=== PATIENT | female | born 1970 | race Caucasian/White ===

== ENCOUNTER → 2016-09-15 | Outpatient (CLI) | payer OTHER ==
[2016-09-15 07:30] LABS: Basophils % (A) 1 %; CH 30.9; CHCM 33.9; Eosinophils # (A) 0.2 k/uL (0-0.7); Eosinophils % (A) 4 %; HCT 41.5 % (34.0-46.0); HDW 2.71; HGB 13.7 gm/dL (11.4-16.0); Luc # (Auto) 0.12; Luc % (Auto) 2; Lymphocytes # (A) 1.9 k/uL (1.0-4.8); Lymphocytes % (A) 32 %; MCH 30.2 pg (25.0-35.0); MCHC 32.9 g/dL (31.0-37.0); MCV 91.7 fL (80.0-100.0); Mean Platelet Volume 6.6; Monocytes # (A) 0.3 k/uL (0-1.0); Monocytes % (A) 6 %; Neutrophils # (A) 3.3 k/uL (1.3-7.7); Neutrophils % (A) 56 %; RBC 4.52 m/uL (3.80-5.40); WBC 5.9 k/uL (3.8-10.6); WBC (Perox) 6.37
[2016-09-15 08:08] LABS: Hemoglobin A1C 5.4 % (4.2-6.1)
[2016-09-15 13:38] LABS: ALT 36 U/L (9-52); AST 21 U/L (14-36); Alkaline Phosphatase 84 U/L (38-126); Anion Gap 10 mmol/L; Blood Urea Nitrogen 15 mg/dL (7-17); Calcium 9.3 mg/dL (8.4-10.2); Carbon Dioxide 26 mmol/L (22-30); Chloride 109 mmol/L (98-107); Cholesterol 165 mg/dL (<200); Glucose 102 mg/dL (74-99); HDL Cholesterol 58 mg/dL (40-60); Non-African American GFR(MDRD) 59 (>60 ml/min/1.73 sqM); Potassium 4.5 mmol/L (3.5-5.1); Sodium 145 mmol/L (137-145); Total Bilirubin 0.4 mg/dL (0.2-1.3); Total Protein 6.6 g/dL (6.3-8.2); Triglycerides 72 mg/dL (<150)
[2016-09-15 14:25] LABS: Vitamin B12 >1000 pg/mL (239-931)
--- NOTE | 2016-09-16 13:08 | MM ---
Reason for exam: screening (asymptomatic). Last mammogram was performed 1 year and 3 months ago. History: Family history of breast cancer in grandmother. Benign left breast aspiration of the left breast, April 01, 2012. Taking hormonal contraceptives for 2 months beginning at age 42. Physical Findings: A clinical breast exam by your physician is recommended on an annual basis and results should be correlated with mammographic findings. MG Screening Mammo w CAD Bilateral CC and MLO view(s) were taken. Prior study comparison: June 26, 2015, bilateral MG screening mammo w CAD. March 14, 2014, bilateral MG screening mammo w CAD. There are scattered fibroglandular densities. Previous mammotome biopsy in the left breast. No significant changes when compared with prior studies. ASSESSMENT: Benign, BI-RAD 2 RECOMMENDATION: Routine screening mammogram of both breasts in 1 year.
== END | disposition home or self-care (01) ==
LOC: RADMAMWWP 06:39
PROVIDERS: ATTEND Family Medicine
DX: Z12.31 Encounter for screening mammogram for malignant neoplasm of breast (principal); M51.27 Other intervertebral disc displacement, lumbosacral region; E88.81 Metabolic syndrome and other insulin resistance; E03.9 Hypothyroidism, unspecified
CPT/HCPCS: 84439; 80061; 80053; 82607; 83036; 84443; 85025; 82306; G0202

== ENCOUNTER → 2016-10-07 | Outpatient (CLI) | payer OTHER ==
--- NOTE | 2016-10-07 16:32 | WWHP ---
DATE OF DICTATION: 10/06/2016 CHIEF COMPLAINT: The patient is here for her routine gynecologic exam. HISTORY OF PRESENT ILLNESS: This is a 46-year-old G2, P2 with an LMP of 03/2016. She is status post tubal ligation. She states it has been about 4 years since her last pelvic exam. She has not had a period since March 2016. She does have pelvic discomfort which seems to occur about every 3 weeks and lasts 3 to 4 days. She states it feels like a period is about to start, but she has not had any bleeding since March. She describes the pain as a deep burning dull pain which is greater on the left side. She denies any pain at this time. The last time she had this type of pain was 10/02 to 10/04 this month. She had similar pain in 2012 and was seen by Dr. Seo at [facility]. The patient underwent diagnostic laparoscopy and the findings were endometriosis in the area of the left ovary as well as a left ovarian cyst which was felt to be an endometrioma. Cystectomy was performed and the pathology report revealed a hemorrhagic corpus luteum cyst. The patient was placed on daily progesterone for 3 months. She states her periods were then regular and the pain was improved. She denies hot flashes. She states her thyroid blood tests have been done just recently and were normal. She denies any leakage from the breasts. PAST MEDICAL HISTORY: 1. Hypothyroidism. 2. Depression. 3. She had possible FL in 12/2015. She states she does take a baby aspirin because of this but has never been referred to a exploration engineer. Dr. Chapman is her primary care physician. MEDICATIONS: 1. Bupropion HCL SR 200 mg b.i.d. 2. Levothyroxine 25 mcg daily. 3. Aspirin 81 mg daily. ALLERGIES: NO KNOWN DRUG ALLERGIES. PAST SURGICAL HISTORY: 1. Tubal ligation in 2006. 2. Laparoscopy with ovarian cystectomy in 02/2013. 3. Tonsillectomy in 1986. PAST OB HISTORY: Vaginal deliveries x2. 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 She was told she had endometriosis by her 2012 laparoscopy. Please see HPI. SOCIAL HISTORY: She quit smoking in 04/2016. She denies alcohol and drug use. She is single but has been with her boyfriend since 2006 but does not live with him. 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 FAMILY HISTORY: Mother had lymphoma, lung cancer and esophageal cancer. Paternal grandmother had breast cancer. Both parents had an FL and diabetes. A brother had an FL. REVIEW OF SYSTEMS: She has gained about 17 pounds over the last year. She believes some of this is related to quitting smoking last year. She denies respiratory, cardiac or GI problems. PHYSICAL EXAM: Blood pressure 133/93. Height 5 feet 7 inches. Weight 233 pounds. Temperature 98.4. Pulse 64. This is a well-developed, heavyset white female who is alert and oriented x3, in no acute distress. HEENT is within normal limits. NECK: Supple without mass or thyromegaly. CHEST AND LUNGS: Clear to auscultation. HEART: Regular rate and rhythm. Breasts are without mass or discharge. Axillary exam is negative for adenopathy. BACK: Negative for CVA tenderness. ABDOMEN: Mildly obese, soft, nontender, without palpable masses. PELVIC EXAM: Normal external genitalia. Cervix and vagina appear normal. There is no significant atrophy and there is no unusual discharge. There is no cervical motion tenderness. There is no evidence of prolapse. The uterus is midposition, nongravid size and nontender. There are no palpable adnexal masses or tenderness. Rectal exam was refused by the patient. EXTREMITIES: Nontender. IMPRESSION: 1. A 46-year-old female with a six-month history of amenorrhea. 2. Cyclic pelvic pains. 3. History of endometriosis. 4. Differential diagnosis for pelvic pain will include endometriosis, outlet obstruction with resulting amenorrhea, ovarian cyst as well as non-gynecologic causes for pain. 5. Amenorrhea may also be caused by menopausal change. PLAN: 1. Pap smear was performed. 2. Self breast examination was discussed. 3. Lab blood work will include FSH. We will try to determine if she is menopausal. 4. Pelvic ultrasound will be scheduled. 5. If she is not menopausal, consider a trial of cyclic progestin treatment. 6. She was told about her elevated blood pressure. I have recommended that she have her blood pressure checked on a regular basis and follow up with Dr. Chapman regarding elevated blood pressure. 7. She will also return in one year and p.r.n.
== END | disposition home or self-care (01) ==
LOC: WWCWWP 07:33
PROVIDERS: ATTEND Obstetrics & Gynecology
DX: N91.1 Secondary amenorrhea (principal)
CPT/HCPCS: 83001

== ENCOUNTER → 2016-10-21 | Outpatient (CLI) | payer OTHER ==
--- NOTE | 2016-10-21 08:47 | US ---
EXAMINATION TYPE: US pelvis complete transvag DATE OF EXAM: 10/21/2016 7:22 AM COMPARISON: NONE CLINICAL HISTORY: R10.2 Pelvic Pain. Irregular menses, patient states having intermittent general/lef t sided pain TECHNIQUE: Transvaginal (TV) and Transabdominal (TA) Date of LMP: 09/15/2016, EXAM MEASUREMENTS: Uterus: 9.4 x 6.9 x 5.0 cm Endometrial Stripe: 0.9 cm Right Ovary: 3.3 x 2.1 x 1.3 cm 1. Uterus: Anteverted Two prominent lesions seen. 1: left hyperechoic lesion = 1.1 x 1.1 x 1.2 cm 2: Right hypoechoic= 1.1 x 0.9 x 1.0 cm 2. Endometrium: wnl 3. Right Ovary: cystic lesion = 1.7 x 1.7 x 1.3 cm 4. Left Ovary: Obscured by overlying bowel gas Spectral, color and waveform doppler imaging shows good arterial and venous flow within the ovaries ; there is no evidence for ovarian torsion. 5. Bilateral Adnexa: wnl 6. Posterior cul-de-sac: no free fluid IMPRESSION: 1. There are 2 approximately 1.2 and 1.1 cm lesions within the myometrium which are nonspecific but felt to be more typical of uterine fibroid and other etiologies such as endometrioma. Correlate clini salty. 2. Simple 1.7 cm right ovarian cyst
== END | disposition home or self-care (01) ==
LOC: RADUSWWP 06:42
PROVIDERS: ATTEND Obstetrics & Gynecology
DX: N83.201 Unspecified ovarian cyst, right side (principal); N85.9 Noninflammatory disorder of uterus, unspecified
CPT/HCPCS: 76830; 76856; 93976

== ENCOUNTER → 2017-11-02 | Outpatient (CLI) | payer BC ==
[2017-11-02 09:24] LABS: Basophils % (A) 1 %; Eosinophils # (A) 0.2 k/uL (0-0.7); Eosinophils % (A) 3 %; HCT 45.7 % (34.0-46.0); HGB 15.2 gm/dL (11.4-16.0); Lymphocytes % (A) 25 %; MCH 30.6 pg (25.0-35.0); MCHC 33.4 g/dL (31.0-37.0); MCV 91.7 fL (80.0-100.0); Monocytes # (A) 0.4 k/uL (0-1.0); Monocytes % (A) 5 %; Neutrophils # (A) 5.3 k/uL (1.3-7.7); Neutrophils % (A) 65 %; Platelet Count 319 k/uL (150-450); RBC 4.98 m/uL (3.80-5.40); RDW 13.2 % (11.5-15.5); WBC 8.3 k/uL (3.8-10.6)
[2017-11-02 09:53] LABS: Albumin 4.2 g/dL (3.5-5.0); Calcium 9.3 mg/dL (8.4-10.2); Potassium 5.2 mmol/L (3.5-5.1); Total Bilirubin 0.4 mg/dL (0.2-1.3); Total Protein 6.6 g/dL (6.3-8.2)
[2017-11-02 09:59] LABS: T4, Free (Free Thyroxine) 1.07 ng/dL (0.78-2.19)
[2017-11-02 17:14] LABS: Progesterone <0.2 ng/mL
== END | disposition home or self-care (01) ==
LOC: LABWHC1 08:31
PROVIDERS: ATTEND Family Medicine
DX: E03.9 Hypothyroidism, unspecified (principal); N92.0 Excessive and frequent menstruation with regular cycle
CPT/HCPCS: 36415; 80053; 83001; 83002; 84144; 84439; 84443; 85025

== ENCOUNTER → 2018-07-19 | Outpatient (CLI) | payer BC ==
[2018-07-19 07:54] LABS: Basophils % (A) 1 %; Eosinophils # (A) 0.2 k/uL (0-0.7); Eosinophils % (A) 3 %; HGB 14.7 gm/dL (11.4-16.0); Lymphocytes # (A) 2.2 k/uL (1.0-4.8); Lymphocytes % (A) 33 %; MCH 29.9 pg (25.0-35.0); MCHC 32.6 g/dL (31.0-37.0); MCV 91.7 fL (80.0-100.0); Mean Platelet Volume 7.2; Monocytes # (A) 0.4 k/uL (0-1.0); Monocytes % (A) 6 %; Neutrophils # (A) 3.6 k/uL (1.3-7.7); Neutrophils % (A) 55 %; Platelet Count 296 k/uL (150-450); RBC 4.91 m/uL (3.80-5.40); RDW 13.1 % (11.5-15.5); WBC 6.5 k/uL (3.8-10.6)
[2018-07-19 08:07] LABS: Albumin 4.5 g/dL (3.5-5.0); Calcium 9.9 mg/dL (8.4-10.2); Potassium 4.6 mmol/L (3.5-5.1); Total Bilirubin 0.6 mg/dL (0.2-1.3); Total Protein 6.9 g/dL (6.3-8.2)
[2018-07-19 08:21] LABS: T4, Free (Free Thyroxine) 1.46 ng/dL (0.78-2.19)
[2018-07-19 13:25] LABS: Progesterone 0.4 ng/mL
[2018-07-19 16:49] LABS: Hemoglobin A1C 5.8 % (4.0-6.0)
--- NOTE | 2018-07-20 12:04 | MM ---
Reason for exam: screening (asymptomatic). Last mammogram was performed 1 year and 10 months ago. History: Family history of breast cancer in grandmother. Benign left breast aspiration of the left breast, April 01, 2012. Taking hormonal contraceptives for 2 months beginning at age 42. Physical Findings: A clinical breast exam by your physician is recommended on an annual basis and results should be correlated with mammographic findings. MG Screening Mammo w CAD Bilateral CC and MLO view(s) were taken. Prior study comparison: September 15, 2016, bilateral MG screening mammo w CAD. June 26, 2015, bilateral MG screening mammo w CAD. There are scattered fibroglandular densities. Previous mammotome biopsy in the left breast. No significant changes when compared with prior studies. ASSESSMENT: Benign, BI-RAD 2 RECOMMENDATION: Routine screening mammogram of both breasts in 1 year.
== END ==
LOC: RADMAMWWP 06:54
PROVIDERS: ATTEND Family Medicine
DX: Z12.31 Encounter for screening mammogram for malignant neoplasm of breast (principal); Z80.3 Family history of malignant neoplasm of breast; N92.0 Excessive and frequent menstruation with regular cycle; E03.9 Hypothyroidism, unspecified; E88.81 Metabolic syndrome and other insulin resistance; I25.6 Silent myocardial ischemia
CPT/HCPCS: 77067; 80053; 80061; 82306; 82607; 83001; 83002; 83036; 84144; 84146; 84439; 84443; 85025; 86304

== ENCOUNTER → 2019-08-24 | Outpatient (CLI) | payer BC ==
--- NOTE | 2019-08-24 10:25 | MM ---
Reason for exam: clinical finding. Last mammogram was performed 1 year and 1 month ago. History: Family history of breast cancer in grandmother at age 66. Benign left breast aspiration of the left breast, April 01, 2012. Took hormonal contraceptives for 2 months beginning at age 42. Physical Findings: Nurse did not find any significant physical abnormalities on exam. MG Diagnostic Mammo w CAD SONDRA Bilateral CC and MLO view(s) were taken. Prior study comparison: July 19, 2018, bilateral MG screening mammo w CAD. September 15, 2016, bilateral MG screening mammo w CAD. There are scattered fibroglandular densities. Left biopsy marker. These results were verbally communicated with the patient and result sheet given to the patient on 08/24/19. ASSESSMENT: Negative, BI-RAD 1 RECOMMENDATION: Routine screening mammogram of both breasts in 1 year.
--- NOTE | 2019-08-24 10:27 | USB ---
Reason for exam: clinical finding. History: Family history of breast cancer in grandmother at age 66. Benign left breast aspiration of the left breast, April 01, 2012. Took hormonal contraceptives for 2 months beginning at age 42. US Breast LT Left complete breast ultrasound includes all four quadrants, the retroareolar region and axilla. Finding demonstrates no cystic or solid lesion seen. No suspicious sonographic finding. These results were verbally communicated with the patient and result sheet given to the patient on 08/24/19. ASSESSMENT: Benign, BI-RAD 2 RECOMMENDATION: Routine screening mammogram of both breasts in 1 year.
== END | disposition home or self-care (01) ==
LOC: RADMAMWWP 07:57
PROVIDERS: ATTEND Family Medicine
DX: N63.20 Unspecified lump in the left breast, unspecified quadrant (principal); N63.10 Unspecified lump in the right breast, unspecified quadrant
CPT/HCPCS: 77066

== ENCOUNTER → 2021-02-24 | Outpatient (CLI) | payer BC ==
[2021-02-24 07:51] LABS: Basophils % (A) 1 %; Eosinophils # (A) 0.2 k/uL (0-0.7); Eosinophils % (A) 3 %; HCT 43.5 % (34.0-46.0); HGB 14.7 gm/dL (11.4-16.0); Lymphocytes # (A) 2.5 k/uL (1.0-4.8); Lymphocytes % (A) 33 %; MCH 31.6 pg (25.0-35.0); MCHC 33.9 g/dL (31.0-37.0); MCV 93.4 fL (80.0-100.0); Mean Platelet Volume 7.7; Monocytes # (A) 0.5 k/uL (0-1.0); Monocytes % (A) 6 %; Neutrophils # (A) 4.1 k/uL (1.3-7.7); Neutrophils % (A) 55 %; Platelet Count 268 k/uL (150-450); RBC 4.65 m/uL (3.80-5.40); RDW 12.7 % (11.5-15.5); WBC 7.4 k/uL (3.8-10.6)
[2021-02-24 08:06] LABS: ALT 26 U/L (4-34); AST 26 U/L (14-36); African American GFR (CKD) 86 (>60 ml/min/1.73 sqM); Albumin 4.2 g/dL (3.5-5.0); Albumin/Globulin Ratio 1.7; Alkaline Phosphatase 84 U/L (38-126); Anion Gap 8 mmol/L; Blood Urea Nitrogen 15 mg/dL (7-17); Calcium 9.9 mg/dL (8.4-10.2); Carbon Dioxide 26 mmol/L (22-30); Chloride 106 mmol/L (98-107); Globulin 2.5 g/dL; Glucose 103 mg/dL (74-99); Non-African American GFR(CKD) 75 (>60 ml/min/1.73 sqM); Potassium 4.5 mmol/L (3.5-5.1); Sodium 140 mmol/L (137-145); Total Bilirubin 0.5 mg/dL (0.2-1.3); Total Protein 6.7 g/dL (6.3-8.2)
[2021-02-24 08:22] LABS: T4, Free (Free Thyroxine) 1.13 ng/dL (0.78-2.19)
[2021-02-24 08:58] LABS: Appearance,Urine Cloudy (Clear); Bacteria,Urine Many /hpf; Bilirubin,Urine Negative (Negative); Blood,Urine Small (Negative); Color,Urine Yellow; Glucose,Urine (UA) Negative (Negative); Hyaline Casts,Urine 1 /lpf (0-2); Ketones,Urine Negative (Negative); Leukocyte Esterase,Urine Moderate (Negative); Mucus,Urine Rare /hpf; Nitrite,Urine Negative (Negative); PH, Urine 5.5 (5.0-8.0); Protein,Urine Negative (Negative); RBC,Urine 4 /hpf (0-5); Specific Gravity,Urine 1.018 (1.001-1.035); Squamous Epithelial Cell,Urine 7 /hpf (0-4); Urobilinogen,Urine <2.0 mg/dL (<2.0); WBC,Urine 6 /hpf (0-5)
[2021-02-24 12:12] LABS: Chol/HDL Ratio 3.65; Cholesterol 186 mg/dL (0-200); LDL Cholesterol,Calculated 108.4 mg/dL (0.0-131.0)
[2021-02-24 14:15] LABS: Hemoglobin A1C 5.6 % (4.0-6.0)
--- NOTE | 2021-02-26 08:32 | MM ---
Reason for exam: screening (asymptomatic). Last mammogram was performed 1 year and 6 months ago. History: Family history of breast cancer in grandmother at age 66. Benign left breast aspiration of the left breast, April 01, 2012. Took hormonal contraceptives for 2 months beginning at age 42. Physical Findings: A clinical breast exam by your physician is recommended on an annual basis and results should be correlated with mammographic findings. MG Screening Mammo w CAD Bilateral CC and MLO view(s) were taken. XCCL view(s) were taken of the left breast. Prior study comparison: August 24, 2019, bilateral MG diagnostic mammo w CAD SONDRA. July 19, 2018, bilateral MG screening mammo w CAD. September 15, 2016, bilateral MG screening mammo w CAD. June 26, 2015, bilateral MG screening mammo w CAD. There are scattered fibroglandular densities. Asymmetric breast tissue right breast MLO view 6-7cm from nipple inferior middle position. This finding is changed when compared with previous exams. ASSESSMENT: Incomplete: need additional imaging evaluation, BI-RAD 0 RECOMMENDATION: Special view mammogram of the right breast. If lesion persists on supplemental views, image directed ultrasound is recommended. [facility] will attempt to contact patient to return for supplemental views and ultrasound if indicated.
== END | disposition home or self-care (01) ==
LOC: RADMAMWWP 06:59
PROVIDERS: ATTEND Family Medicine
DX: Z12.31 Encounter for screening mammogram for malignant neoplasm of breast (principal); E03.9 Hypothyroidism, unspecified; E88.81 Metabolic syndrome and other insulin resistance; R31.21 Asymptomatic microscopic hematuria
CPT/HCPCS: 36415; 77067; 80053; 80061; 81001; 82306; 82607; 83036; 84439; 84443; 85025

== ENCOUNTER → 2021-02-27 | Outpatient (CLI) | payer BC ==
--- NOTE | 2021-02-27 11:40 | MM ---
Reason for exam: additional evaluation requested from abnormal screening. Last mammogram was performed less than 1 month ago. History: Family history of breast cancer in grandmother at age 66. Benign left breast aspiration of the left breast, April 01, 2012. Took hormonal contraceptives for 2 months beginning at age 42. Physical Findings: Nurse did not find any significant physical abnormalities on exam. MG 3D Work Up W/Cad RT LM and spot compression MLO view(s) were taken of the right breast. Prior study comparison: February 24, 2021, bilateral MG screening mammo w CAD. August 24, 2019, bilateral MG diagnostic mammo w CAD SONDRA. There are scattered fibroglandular densities. The inferior asymmetric density completely disperses on spot 3D. Density is again noted on lateral but has an appearance of tissue on 3D. 6 month follow up recommended. These results were verbally communicated with the patient and result sheet given to the patient on 02/27/21. ASSESSMENT: Probably benign, BI-RAD 3 RECOMMENDATION: Follow-up diagnostic mammogram of the right breast in 6 months.
== END | disposition home or self-care (01) ==
LOC: RADMAMWWP 06:58
PROVIDERS: ATTEND Family Medicine
DX: N64.89 Other specified disorders of breast (principal); Z80.3 Family history of malignant neoplasm of breast; Z79.3 Long term (current) use of hormonal contraceptives
CPT/HCPCS: 77061; 77065

== ENCOUNTER → 2021-05-30 | Outpatient (CLI) | payer BC ==
--- NOTE | 2021-07-01 13:54 | EM ---
EVENT MONITOR There were several recordings provided. Most of these were sinus recordings. There was one 3-beat run of PAT and also 1 isolated PVCs noted. Whenever patient triggered it, the rhythm was sinus with 1 isolated PVC. FINAL IMPRESSION: Predominant sinus. There were rare PVCs and 1 3-beat run of PAT. No other significant arrhythmia noted. MMODL / IJN: [id number] /
== END | disposition home or self-care (01) ==
LOC: RADECHMAIN 07:51
PROVIDERS: ATTEND Family Medicine
DX: I49.3 Ventricular premature depolarization (principal)
CPT/HCPCS: 93270

== ENCOUNTER → 2021-08-29 | Outpatient (CLI) | payer BC ==
--- NOTE | 2021-09-03 10:11 | MM ---
Reason for exam: follow-up at short interval from prior study. Last mammogram was performed 6 months ago. History: Family history of breast cancer in grandmother at age 66. Benign left breast aspiration of the left breast, April 01, 2012. Took hormonal contraceptives for 2 months beginning at age 42. Physical Findings: A clinical breast exam by your physician is recommended on an annual basis and results should be correlated with mammographic findings. MG 3D Diag Mammo W/Cad RT CC and MLO view(s) were taken of the right breast. Prior study comparison: February 27, 2021, right breast MG 3d work up w/cad RT. February 24, 2021, bilateral MG screening mammo w CAD. There are scattered fibroglandular densities. There is no discrete abnormality. ASSESSMENT: Negative, BI-RAD 1 RECOMMENDATION: Return to routine screening mammogram schedule for both breasts. Back on schedule.
== END | disposition home or self-care (01) ==
LOC: RADMAMWWP 14:02
PROVIDERS: ATTEND Family Medicine
DX: N64.89 Other specified disorders of breast (principal); Z80.3 Family history of malignant neoplasm of breast
CPT/HCPCS: 77061; 77065

== ENCOUNTER → 2021-10-07 | Outpatient (CLI) | payer BC ==
[2021-10-07 08:00] VITALS: BP 162/98; PULSE 70; RESP 17; TEMP 97
--- NOTE | 2021-10-07 08:47 | P.HPOB ---
History of Present Illness H&P Date: 10/07/21 Chief Complaint: The patient is here for her routine gynecologic exam. This is a 51-year-old with an LMP of November 2020. Prior to her LMP, her menstrual period for about 2 times per year and spacing out. She has noticed an increase in hot flashes which are generally short and tolerable. She is otherwise without complaints. Review of Systems She has gained about 5 pounds over the past 5 years. She denies respiratory, cardiac, or GI problems. She is currently on antibiotics for diverticulitis. Past Medical History Past Medical History: No Reported History, Myocardial Infarction ([place]), Thyroid D isorder Additional Past Medical History / Comment(s): [place] in 2015. Hypothyroidism, diverticulosis. 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 History of endometriosis. History of Any Multi-Drug Resistant Organisms: None Reported Past Surgical History: Tonsillectomy, Tubal Ligation Additional Past Surgical History / Comment(s): Laparoscopy with ovarian cystectomy in 2012. Colonoscopy 2020(next after 5yr). Past Anesthesia/Blood Transfusion Reactions: No Reported Reaction Past Psychological History: Depression Smoking Status: Current every day smoker (Half a pack per day.) Past Alcohol Use History: None Reported Past Drug Use History: None Reported Additional History: She is a since 2018. She is currently not seen anybody and has not been sexually active recently. 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 - Past Family History Mother Family Medical History: Cancer, Diabetes Mellitus, Myocardial Infarction ([place]) Additional Family Medical History / Comment(s): Lymphoma, lung cancer, and esophageal cancer. Brother(s) Family Medical History: Myocardial Infarction ([place]) Father Family Medical History: Diabetes Mellitus, Myocardial Infarction ([place]) Additional Family Medical History / Comment(s): A paternal grandmother had breast cancer. Sister(s) Family Medical History: Myocardial Infarction ([place]) Medications and Allergies Home Medications Medication Instructions Recorded Confirmed Type Cyanocobalamin (Vitamin B-12) 1,000 mcg PO DAILY 10/07/21 10/07/21 History [Vitamin B-12] Levothyroxine Sodium 25 mg PO DAILY 10/07/21 10/07/21 History buPROPion HCL [buPROPion HCL SR] 200 mg PO DAILY 10/07/21 10/07/21 History Allergies Allergy/AdvReac Type Severity Reaction Status Date / Time No Known Allergies Allergy Unverified 10/07/21 07:51 Exam Vital Signs Temp Pulse Resp BP Pulse Ox 10/07/21 07:55 97.0 F L 70 17 162/98 98 Intake and Output 10/06/21 10/07/21 10/07/21 22:59 06:59 14:59 Other: Weight 107.955 kg Height 5 feet 7 inches, weight 238 pounds, BMI 37.3. This is a well-developed well-nourished white female who is alert and oriented times 3 in no acute distress. HEENT: Within normal limits. NECK: Supple without mass or thyromegaly. CHEST AND LUNGS: Clear to auscultation. HEART: Regular rate and rhythm. BREASTS: Are without mass or discharge. AXILLARY EXAM: Negative for adenopathy. BACK: Negative for CVA tenderness. ABDOMEN: Soft, nontender, without palpable masses. PELVIC EXAM: Normal external genitalia with mild atrophy. Cervix and vagina appear normal with mild atrophy. There is no unusual discharge. There is no evidence of prolapse. The uterus is midposition, nongravid size and nontender. There are no palpable adnexal masses or tenderness. RECTAL EXAM: Rectovaginal exam is negative for mass or tenderness and is negative for occult blood. EXTREMITIES: Nontender. IMPRESSION: 1. 51-year-old perimenopausal female who is status post tubal ligation, with normal gynecologic exam. 2. Elevated blood pressure. PLAN: 1. Pap smear cotest was performed. 2. Self breast awareness was discussed with the patient. We have also discussed symptoms associated with inflammatory breast cancer. 3. Screening mammogram will be due in February 2022. The order slip was given to the patient for this. 4. We have discussed her elevated blood pressure. I have stressed the importance of having good blood pressure control especially with her history of a previous [place]. I have recommended that she check her own blood pressures at home on a regular basis since she does have a blood pressure cuff. She will fo llow up with her PCP for blood pressure elevations. 5. I have strongly recommended that she quit smoking especially with her history of a previous [place]. We've discussed possible risks with smoking and many reasons to quit smoking. 6.Osteoporosis prevention was discussed. I have stressed the importance of adequate calcium, vitamin D and regular exercise. Recommended amounts of calcium and vitamin D were also discussed. 7. She will keep track of vaginal bleeding and call if problems. She was also instructed to call she has bleeding after 12 months of amenorrhea. 8. She was advised to return in one year for her annual well woman exam.
== END ==
LOC: WWCWWP 07:44
PROVIDERS: ATTEND Obstetrics & Gynecology
DX: Z01.419 Encounter for gynecological examination (general) (routine) without abnormal findings (principal); I25.2 Old myocardial infarction; E03.9 Hypothyroidism, unspecified; F32.A Depression, unspecified; F17.210 Nicotine dependence, cigarettes, uncomplicated; Z79.890 Hormone replacement therapy; R03.0 Elevated blood-pressure reading, without diagnosis of hypertension; Z98.51 Tubal ligation status

== ENCOUNTER → 2022-10-13 | Outpatient (CLI) | payer BC ==
--- NOTE | 2022-10-14 09:21 | MM ---
Reason for Exam: Screening (asymptomatic). Last mammogram was performed 1 year(s) and 8 month(s) ago. Patient History: Menarche at age 12. First Full-Term at age 20. Postmenopausal. Hormonal Contraceptives for 2 months from age 42 until age 43. 04/01/2012, Benign Cyst Aspiration on the left side. Paternal grandmother had breast cancer, age 66. Risk Values: Shahla 5 year model risk: 0.9%. NCI Lifetime model risk: 6.9%. Prior Study Comparison: 09/15/2016 Bilateral Screening Mammogram, [facility]. 07/19/2018 Bilateral Screening Mammogram, [facility]. 08/24/2019 Bilateral Diagnostic Mammogram, [facility]. 02/24/2021 Bilateral Screening Mammogram, [facility]. 02/27/2021 Right Diagnostic Mammogram, [facility]. 08/29/2021 Right Diagnostic Mammogram, [facility]. Tissue Density: There are scattered fibroglandular densities. Findings: Analyzed By CAD. There is mammotome biopsy clip in the left breast redemonstrated. There is no suspicious group of microcalcifications or new suspicious mass in either breast. Overall Assessment: Benign, BI-RAD 2 Management: Screening Mammogram of both breasts in 1 year. . Patient should continue monthly self-breast exams. A clinical breast exam by your physician is recommended on an annual basis. This exam should not preclude additional follow-up of suspicious palpable abnormalities. Note on Shahla scores and lifetime risk: 1. A Shahla score greater than 3% is considered moderate risk. If this is the case, consider specialist referral to assess eligibility for a risk reducing agent. 2. If overall lifetime risk for the development of breast cancer is 20% or higher, the patient may qualify for future screening with alternating mammogram and breast MRI. Electronically signed and approved by: Marco Joyner M.D.
== END | disposition home or self-care (01) ==
LOC: RADMAMWWP 07:50
PROVIDERS: ATTEND Family Medicine
DX: Z12.31 Encounter for screening mammogram for malignant neoplasm of breast (principal); Z78.0 Asymptomatic menopausal state; Z80.3 Family history of malignant neoplasm of breast
CPT/HCPCS: 77063; 77067

== ENCOUNTER → 2023-11-15 | Outpatient (CLI) | payer OTHER ==
[2023-11-15 16:13] LABS: ALT 26 U/L (8-44); AST 18 U/L (13-35); Albumin 4.5 g/dL (3.8-4.9); Albumin/Globulin Ratio 2.05 Ratio (1.60-3.17); Alkaline Phosphatase 115 U/L (41-126); BUN/Creat Ratio 12.18 Ratio (12.00-20.00); Blood Urea Nitrogen 13.4 mg/dL (9.0-27.0); Calcium 9.8 mg/dL (8.7-10.3); Carbon Dioxide 24.3 mmol/L (21.6-31.8); Chloride 105 mmol/L (96-109); Chol/HDL Ratio 4.32 Ratio; Globulin 2.2 g/dL (1.6-3.3); Glucose 105 mg/dL (70-110); LDL Cholesterol,Calculated 133.3 mg/dL (0.0-131.0); Potassium 4.4 mmol/L (3.5-5.5); Sodium 141 mmol/L (135-145); Total Bilirubin 0.3 mg/dL (0.3-1.2); Total Protein 6.7 g/dL (6.2-8.2)
[2023-11-15 16:26] LABS: Basophils # (A) 0.06 X 10*3/uL (0.00-0.10); Basophils % (A) 0.8 %; Eosinophils # (A) 0.25 X 10*3/uL (0.04-0.35); Eosinophils % (A) 3.4 %; HCT 45.3 % (37.2-46.3); HGB 14.9 g/dL (12.0-15.0); Lymphocytes # (A) 2.47 X 10*3/uL (0.90-5.00); Lymphocytes % (A) 33.9 %; MCH 30.7 pg (27.0-32.0); MCHC 32.9 g/dL (32.0-37.0); MCV 93.2 FL (80.0-97.0); Mean Platelet Volume 11.2 FL (9.5-12.2); Monocytes # (A) 0.57 X 10*3/uL (0.20-1.00); Monocytes % (A) 7.8 %; NRBC Per 100 WBC 0 X 10*3/uL (0.00-0.01); Neutrophils # (A) 3.91 X 10*3/uL (1.80-7.70); Neutrophils % (A) 53.7 %; Platelet Count 326 X 10*3/uL (140-440); RBC 4.86 X 10*6/uL (4.10-5.20); RDW 12.7 % (11.5-14.5); WBC 7.29 X 10*3/uL (4.50-10.00)
== END | disposition home or self-care (01) ==
LOC: LABWHC1 07:37
PROVIDERS: ATTEND Family Medicine
DX: E03.9 Hypothyroidism, unspecified (principal); F41.3 Other mixed anxiety disorders; E78.5 Hyperlipidemia, unspecified; R73.9 Hyperglycemia, unspecified
CPT/HCPCS: 36415; 80053; 80061; 83036; 84439; 84443; 85025

== ENCOUNTER → 2024-04-05 | Outpatient (CLI) | payer OTHER ==
--- NOTE | 2024-04-06 09:52 | MM ---
Reason for Exam: Screening (asymptomatic). Last mammogram was performed 1 year(s) and 5 month(s) ago. Patient History: Menarche at age 12. First Full-Term at age 20. Postmenopausal. Hormonal Contraceptives for 2 months from age 42 until age 43. 04/01/2012, Benign Cyst Aspiration on the left side. Paternal grandmother had breast cancer, age 66. Risk Values: Shahla 5 year model risk: 1.0%. NCI Lifetime model risk: 6.7%. Prior Study Comparison: 02/27/2021 Right Diagnostic Mammogram, [facility]. 08/29/2021 Right Diagnostic Mammogram, [facility]. 10/13/2022 Bilateral MG 3D screening mammo w/cad, [facility]. Tissue Density: There are scattered areas of fibroglandular density. Findings: Analyzed By CAD. There is no suspicious group of microcalcifications or new suspicious mass in either breast. Overall Assessment: Benign, BI-RAD 2 Management: Screening Mammogram of both breasts in 1 year. . Patient should continue monthly self-breast exams. A clinical breast exam by your physician is recommended on an annual basis. This exam should not preclude additional follow-up of suspicious palpable abnormalities. Note on Shahla scores and lifetime risk: 1. A Shahla score greater than 3% is considered moderate risk. If this is the case, consider specialist referral to assess eligibility for a risk reducing agent. 2. If overall lifetime risk for the development of breast cancer is 20% or higher, the patient may qualify for future screening with alternating mammogram and breast MRI. [facility], , 04/06/2024 9:50 AM. Electronically signed and approved by: Tam Ruvalcaba M.D. [facility]
== END | disposition home or self-care (01) ==
LOC: RADMAMWWP 08:33
PROVIDERS: ATTEND Obstetrics & Gynecology
CPT/HCPCS: 77063; 77067

== ENCOUNTER → 2024-04-11 | Outpatient (CLI) | payer OTHER ==
[2024-04-11 15:34] VITALS: BP 141/70; PULSE 87; RESP 16; TEMP 98.3
--- NOTE | 2024-04-11 16:10 | P.HPOB ---
History of Present Illness H&P Date: 04/11/24 Chief Complaint: The patient is here for her routine gynecologic exam. This is a 53-year-old G2, P2 with an LMP of 2021. She is without gynecologic complaints. Review of Systems The patient has gained 6 pounds over the last year. She denies respiratory, cardiac, or G.I. problems. Past Medical History Past Medical History: Myocardial Infarction ([place]), Thyroid Disorder Additional Past Medical History / Comment(s): [place] in 2015. Hypothyroidism, diverticulosis. 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 History of endometriosis. Last Myocardial Infarction Date:: . History of Any Multi-Drug Resistant Organisms: None Reported Past Surgical History: Tonsillectomy, Tubal Ligation Additional Past Surgical History / Comment(s): Laparoscopy with ovarian cystectomy in 2012. Colonoscopy 2020(next after 5yr). Past Anesthesia/Blood Transfusion Reactions: No Reported Reaction Past Psychological History: Depression Smoking Status: Current every day smoker (1/2-3/4 of a pack of cigarettes per day.) Past Alcohol Use History: None Reported Past Drug Use History: None Reported Additional History: She has been a since 2018 and is not seeing anybody at this time and is not sexually active. 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 - Past Family History Mother Family Medical History: Cancer, Diabetes Mellitus, Myocardial Infarction ([place]) Additional Family Medical History / Comment(s): Lymphoma, lung cancer, and esophageal cancer. Brother(s) Family Medical History: Diabetes Mellitus, Myocardial Infarction ([place]) Father Family Medical History: Diabetes Mellitus, Myocardial Infarction ([place]) Additional Family Medical History / Comment(s): A paternal grandmother had breast cancer. Sister(s) Family Medical History: Coronary Artery Disease (CAD), Diabetes Mellitus Medications and Allergies Home Medications Medication Instructions Recorded Confirmed Type Cyanocobalamin (Vitamin B-12) 1,000 mcg PO DAILY 10/07/21 04/11/24 History [Vitamin B-12] Levothyroxine Sodium 25 mg PO DAILY 10/07/21 04/11/24 History buPROPion HCL [buPROPion HCL SR] 200 mg PO DAILY 10/07/21 04/11/24 History Allergies Allergy/AdvReac Type Severity Reaction Status Date / Time No Known Allergies Allergy Unverified 04/11/24 15:31 Exam Vital Signs Temp Pulse Resp BP Pulse Ox 04/11/24 15:32 98.3 F 87 16 141/70 98 Intake and Output 04/11/24 04/11/24 04/11/24 06:59 14:59 22:59 Other: Weight 110.677 kg Height 5 feet 6 inches, weight 244 pounds, BMI 39.4. This is a well-developed well-nourished white female who is alert and oriented times 3 in no acute distress. HEENT: Within normal limits. NECK: Supple without mass or thyromegaly. CHEST AND LUNGS: Clear to auscultation. HEART: Regular rate and rhythm. BREASTS: Are without mass or discharge. AXILLARY EXAM: Negative for adenopathy. BACK: Negative for CVA tenderness. ABDOMEN: Soft, nontender, without palpable masses. PELVIC EXAM: Normal external genitalia with mild atrophy. Cervix and vagina appear normal with mild atrophy. There is no unusual discharge. There is no evidence of prolapse. The uterus is midposition, nongravid size and nontender. There are no palpable adnexal masses or tenderness. Bimanual examination is somewhat limited secondary to her size. RECTAL EXAM: Rectovaginal exam is negative for mass or tenderness and is negative for occult blood. EXTREMITIES: Nontender. IMPRESSION: 1. 53-year-old menopausal female with normal gynecologic exam. PLAN: 1. Pap smear was deferred since she had a negative Pap smear cotest on 10/07/2021. 2. Self breast awareness was discussed with the patient. We have also discussed symptoms associated with inflammatory breast cancer. 3. Screening mammogram was done on 04/05/2024 and was benign. She will repeat this after 1 year. 4. Osteoporosis prevention was discussed. I have stressed the importance of adequate calcium, vitamin D and regular exercise. Recommended amounts of calcium and vitamin D were also discussed. 5. She was advised to return in one year for her annual well woman exam.
== END ==
LOC: WWCWWP 15:17
PROVIDERS: ATTEND Obstetrics & Gynecology

== ENCOUNTER → 2024-04-27 | Outpatient (CLI) | payer OTHER ==
--- NOTE | 2024-04-29 14:22 | CTL ---
EXAMINATION TYPE: CT Low Dose Lung DATE OF EXAM: 04/27/2024 7:15 AM COMPARISON: None. CLINICAL INDICATION: Female, 53 years old with history of F17.210 nicotine dependence, nicotine depen dence, Lung cancer screening, History of tobacco use. TECHNIQUE: Low dose computed tomography scan was performed through the chest at 1 mm thick sections a nd reconstructed images in the coronal plane at 1 mm thick sections. Contrast used: mL of , (none if empty) Oral contrast used: (none if empty) CT DLP: 134.4 mGycm, Automated exposure control for dose reduction was used. CT CTDI: 4.0 mGy, Automated exposure control for dose reduction was used. SCREENING VISIT: Initial CT DIAGNOSTIC QUALITY: Satisfactory FINDINGS: LUNG NODULES: None. LUNGS: COPD: Severity: None Fibrosis: Severity: None Lymph nodes: None Other findings: None RIGHT PLEURAL SPACE: Effusion: None Calcification: None Thickening: None Pneumothorax: None LEFT PLEURAL SPACE: Effusion: None Calcification: None Thickening: None Pneumothorax: None HEART: Other: Ascending thoracic aorta at the level the main pulmonary artery measures 3.3 cm. The main pul monary artery at the bifurcation measures2.3 cm. Heart Size: Normal Coronary calcification: Normal Pericardial effusion: None OTHER FINDINGS: Upper abdomen: Normal Bony thorax: Normal Supraclavicular region: Normal IMPRESSION: No suspicious changes to suggest primary or metastatic neoplasm FOLLOW UP CT CHEST RECOMMENDATION: Follow-up low-dose CT chest one year CT LUNG RAD: 1 [facility], Workstation: [id number], 04/29/2024 2:20 PM
== END | disposition home or self-care (01) ==
LOC: RADCTMAIN 06:49
PROVIDERS: ATTEND Family Medicine
DX: Z12.2 Encounter for screening for malignant neoplasm of respiratory organs (principal); F17.210 Nicotine dependence, cigarettes, uncomplicated
CPT/HCPCS: 71271

== ENCOUNTER → 2024-05-16 | Outpatient (CLI) | payer OTHER ==
--- NOTE | 2024-05-16 09:11 | CT ---
EXAMINATION TYPE: CT sinus wo con DATE OF EXAM: 05/16/2024 7:26 AM COMPARISON: None. CLINICAL INDICATION: Female, 53 years old with history of J32.0 CHRONIC MAXILLARY SINUSITIS, , TECHNIQUE: Noncontrast axial views of the paranasal sinuses were obtained. Coronal and sagittal refor matted images were obtained from the axial views for evaluation of nasal cavity, osteomeatal complex and skull base integrity. CT DLP: 590.1 mGycm, Automated exposure control for dose reduction was used. FINDINGS: PARANASAL SINUSES: There is severe lobulated mucosal thickening within both maxillary sinuses. Trace mucosal thickening sphenoid sinuses and ethmoid air cells. Frontal sinuses well pneumatized. There is no air-fluid level. Reactive rodrigo- osteogenesis is not seen. There is no destruction of the osseous back of the paranasal sinuses. THE NASAL CAVITY: The osteomeatal complexes are patent. Leftward nasal septal deviation. The imaged brain and orbits are normal in appearance. Mastoid air cells and middle ear cavities are well pneumatized. Reformatted images confirm above findings. IMPRESSION: 1. Severe lobulated mucosal thickening within the bilateral maxillary sinuses. 2. Trace mucosal thickening ethmoid air cells and sphenoid sinuses. 3. Leftward nasal septal deviation. [facility], , 05/16/2024 9:09 AM
== END | disposition home or self-care (01) ==
LOC: RADCTMAIN 06:15
PROVIDERS: ATTEND Otolaryngology
DX: J32.0 Chronic maxillary sinusitis (principal); J34.89 Other specified disorders of nose and nasal sinuses; J34.2 Deviated nasal septum
CPT/HCPCS: 70486

== ENCOUNTER → 2024-05-16 | Outpatient (CLI) | payer OTHER ==
[2024-05-16 19:07] LABS: Alternaria alternata IgE <0.10 kU/L; Aspergillus fumagatus IgE <0.10 kU/L; Birch IgE <0.10 kU/L; Cat Epith & Dander IgE <0.10 kU/L; Cladosporian herbarum IgE <0.10 kU/L; Cockroach IgE <0.10 kU/L; Dermato. farinae IgE <0.10 kU/L; Dog Dander IgE <0.10 kU/L; Elm IgE <0.10 kU/L; Maple (Box Elder) IgE <0.10 kU/L; Oak IgE <0.10 kU/L; Ragweed,Common IgE <0.10 kU/L; Red Top (Bentgrass) IgE <0.10 kU/L
[2024-05-16 22:00] LABS: Immunoglobulin E <5.00 IU/mL (0.00-114.00)
== END | disposition home or self-care (01) ==
LOC: LABWHC1 07:42
PROVIDERS: ATTEND Otolaryngology
DX: J30.89 Other allergic rhinitis (principal)
CPT/HCPCS: 36415; 82785; 86003